=== PATIENT | female | born 1970 | race Caucasian/White ===

== ENCOUNTER → 2017-06-16 | Outpatient (CLI) | payer OTHER ==
--- NOTE | 2017-06-18 09:22 | MG ---
HISTORY: SCREENING Comparison: Multiple mammograms dating back to January 28, 2011. FINDINGS: Bilateral CC and MLO projections of the right and left breast were obtained. Implant displacement vie ws were also performed. Heterogeneously dense fibroglandular tissue is seen to be present. No signif icant architectural distortion, mass or clustered microcalcifications can be observed to suggest karen gnancy. Subpectoral saline implants that appear unchanged and intact. No skin thickening or nipple re traction is appreciated. No pathological lymphadenopathy can be identified. Benign-appearing calcif ications scattered throughout the right and left breasts are observed. IMPRESSION: NO RADIOGRAPHIC EVIDENCE OF MALIGNANCY. ACR CATEGORY: 2 - benign findings. FOLLOW-UP EXAM 1 YEAR. Diagnostic CAD was utilized and reviewed. * 0 (ZERO) - ASSESSMENT INCOMPLETE; ADDITIONAL IMAGING IS NEEDED. * 1/1 (ONE) - NEGATIVE. * 2/II (TWO) - BENIGN FINDINGS. * 3/III (THREE) - PROBABLY BENIGN FINDING; SHORT INTERVAL FOLLOW-UP SUGGESTED. * 4/IV (FOUR) - SUSPICIOUS ABNORMALITY; BIOPSY SHOULD BE CONSIDERED. * 5/V - HIGHLY SUSPICIOUS OF MALIGNANCY; BIOPSY SHOULD BE PERFORMED. A NEGATIVE X-RAY REPORT SHOULD NOT DELAY BIOPSY IF A DOMINANT OR CLINICALLY SUSPICIOUS MASS IS PRESENT; 4 TO 8 PERCENT OF CANCERS ARE NOT IDENTIFIED BY X-RAY. A NEGA TIVE REPORT MAY REINFORCE THE CLINICAL IMPRESSION. ADENOSIS AND DENSE BREASTS MAY OBSCURE AN UNDERLY ING NEOPLASM. Reported By:
== END ==
LOC: RAD 13:50
PROVIDERS: ATTEND Specialist
DX: Z12.31 Encounter for screening mammogram for malignant neoplasm of breast (principal)
CPT/HCPCS: 77067

== ENCOUNTER 2020-06-24 10:04 | Observation (INO) ==
[2020-06-24 10:14] VITALS: BMI 30.2
--- NOTE | 2020-06-24 10:52 | DR.CP ---
HPI Time Seen Time Seen by Provider: 06/24/20 10:31 PCP Primary Care Physician: Rei Complaint Chief Complaint Doctor Comments: chest pain x 2 days. left sided. fh for CAD. no personal hx of CAD. no SOB. no n/v/f/c. Chief Complaint:: Pt c/o intermittent chest pain since Wednesday. She c/o shortness of breath when pain occurs. Pain worsens with movement and deep breathing. Self Treatment fo Chief Complaint: none COVID-19 Coronavirus risk:travel/contact w/high risk person: No Has patient experienced Coronavirus symptoms: No Reviewed Nurses Notes Review: Yes Source History Provided: Patient Mode of Arrival Mode of Arrival: Ambulatory Timing Onset of Chief Complaint: 06/22/20 PMH PMH Past Medical History: Yes Past Medical History: Anxiety and GERD Past Medical History Comment: fatty liver, cerival cancer Past Surgical History: Yes Surgical History: , Cholecystectomy, [employer] G[employer] Surgery, Hysterectomy and Tonsillectomy Past Surgical History Comment: breast augmentation Family History History of Family Medical Conditions: Yes Family Medical History: Coronary Artery Disease Social History Does patient currently use any type of tobacco product: No Have you used tobacco products in the last 12 months: No Type of Tobacco Use: None Does any household member use tobacco: No Alcohol Use: None Do you use any recreational Drugs:: No Lives With: Spouse Lives Where: Home Travel Risk Coronavirus risk:travel/contact w/high risk person: No Has patient experienced Coronavirus symptoms: No Infectious screening In the last 2 months have you had wt loss of >10#?: NO Have you had fever, night sweats or hemotysis?: No Have you traveled outside the country in the last 6 months?: No Isolation: Standard ROS Review of Systems Constitutional: No Symptoms Reported Eyes: No Symptoms Reported ENTM: No Symptoms Reported Respiratoy: No Symptoms Reported Cardiovascular: See HPI and Chest Pain Gastrointestinal/Abdominal: No Symptoms Reported Genitourinary: No Symptoms Reported Neurological: No Symptoms Reported Musculoskeletal: No Symptoms Reported Integumentary: No Symptoms Reported All Other Systems: Reviewed and Negative PE Vitals Vitals: Temperature 97.0 F Pulse Rate [Left Radial] 81 Pulse Rate 76 Respiratory Rate 18 Blood Pressure [Left Arm] 164/88 Blood Pressure 132/90 O2 Sat by Pulse Oximetry 98 General General Appearance: Alert and Anxious Head Head Exam: Normal Inspection Eyes Eye exam: Normal Appearance ENT ENT Exam: Normal Exam Chest Chest Inspection: Normal Inspection Respiratory Respiratory Exam: Normal Lung Sounds Bilat Cardiovascular Cardiovascular Exam: Regular Rate, Normal Rhythm and Normal Heart Sounds Pulse: Normal Edema: Normal Abdominal Exam Abdominal Exam: Normal Inspection, Normal Bowel Sounds and Soft; negative Tenderness Extremities Extremities Exam: Normal Inspection and Full ROM Back Back Exam: Normal Inspection and Full ROM Neurologic Neurological Exam: Alert and Oriented X3 Skin Skin Exam: Warm, Dry and Intact COURSE Reevaluation 1st: Improved ROR Labs Reviewed Result Diagrams: 06/24/20 10:35 06/24/20 10:35 Laboratory: WBC 5.6 X10^3/uL (3.6-10.0) 06/24/20 10:35 RBC 5.02 X10^6/uL (3.5-5.4) 06/24/20 10:35 Hgb 15.5 g/dL (12.0-16.0) 06/24/20 10:35 Hct 45.4 % (36.0-47.0) 06/24/20 10:35 MCV 90.4 fL (80.0-100.0) 06/24/20 10:35 MCH 30.8 pg (27.0-34.0) 06/24/20 10:35 MCHC 34.1 g/dL (33.0-35.0) 06/24/20 10:35 RDW 13.5 % (11.6-16.5) 06/24/20 10:35 Plt Count 214 X10^3/uL (150.0-450.0) 06/24/20 10:35 MPV 8.5 fL (7.4-11.0) 06/24/20 10:35 Neut % (Auto) 57.0 % (42.0-75.0) 06/24/20 10:35 Lymph % (Auto) 28.8 % (21.0-51.0) 06/24/20 10:35 Mclennan % (Auto) 12.3 % (0.0-13.0) 06/24/20 10:35 Eos % (Auto) 1.3 % (0.9-2.9) 06/24/20 10:35 Baso % (Auto) 0.6 % (0.2-1.0) 06/24/20 10:35 Neut # (Auto) 3.2 x10^3/uL (2.2-4.8) 06/24/20 10:35 Lymph # (Auto) 1.6 X10^3/uL (1.3-2.9) 06/24/20 10:35 Mclennan # (Auto) 0.7 x10^3/uL (0.3-0.8) 06/24/20 10:35 Eos # (Auto) 0.1 x10^3/uL (0.0-0.2) 06/24/20 10:35 Baso # (Auto) 0.0 X10^3/uL (0.0-0.1) 06/24/20 10:35 Absolute Nucleated RBC 0.2 /100WBC 06/24/20 10:35 PT 12.8 SECONDS (11.8-14.3) 06/24/20 10:35 INR Target Range - 06/24/20 10:35 INR 0.99 (0.8-1.3) 06/24/20 10:35 APTT 31.0 SECONDS (22.9-36.5) 06/24/20 10:35 PTT Comment - 06/24/20 10:35 Sodium 140 mmol/L (136-145) 06/24/20 10:35 Corrected Sodium TNP 06/24/20 10:35 Potassium 3.4 mmol/L (3.5-5.1) L 06/24/20 10:35 Chloride 103 mmol/L (98-107) 06/24/20 10:35 Carbon Dioxide 28.9 mmol/L (21-32) 06/24/20 10:35 BUN 14 mg/dL (7-18) 06/24/20 10:35 Creatinine 1.01 mg/dL (0.55-1.02) 06/24/20 10:35 Est GFR (MDRD) Af Amer > 60 (>60) 06/24/20 10:35 Est GFR (MDRD) Non-Af > 60 (>60) 06/24/20 10:35 Glucose 96 mg/dL (65-99) 06/24/20 10:35 Calcium 9.4 mg/dL (8.5-10.1) 06/24/20 10:35 Corrected Calcium TNP 06/24/20 10:35 Total Bilirubin 0.40 mg/dL (0.2-1.0) 06/24/20 10:35 AST 33 Units/L (15-37) 06/24/20 10:35 ALT 94 Units/L (12-78) H 06/24/20 10:35 Alkaline Phosphatase 86 Units/L (46-116) 06/24/20 10:35 Creatine Kinase 78 Units/L (26-192) 06/24/20 10:35 CK-MB (CK-2) < 1.0 ng/mL (0-4.0) 06/24/20 10:35 Troponin I < 0.02 ng/mL (0-1.5) 06/24/20 10:35 Total Protein 7.8 g/dL (6.4-8.2) 06/24/20 10:35 Albumin 4.1 g/dL (3.4-5.0) 06/24/20 10:35 Globulin 3.7 g/dL (2.5-4.5) 06/24/20 10:35 Albumin/Globulin Ratio 1.1 Ratio (1.1-2.1) 06/24/20 10:35 SARS CoV-2 RNA Rapid SHYAM Negative (NEGATIVE) 06/24/20 12:06 Opioid Opioid Risk Tool Age (Fred box if 16-45): No History of Preadolescent Sexual Abuse: No Total: 0 Total Score Risk Category: Low Risk Copyright: Chapo MORALES predicting aberrant behaviors Diagnosis Discharge Problem: Chest pain Narrative Support Text: spoke w dr renee who agrees to obs for chest pain
[2020-06-24 10:58] LABS: BASOPHILS % (AUTO) 0.6 % (0.2-1.0); EOSINOPHILS # (AUTO) 0.1 x10^3/uL (0.0-0.2); EOSINOPHILS % (AUTO) 1.3 % (0.9-2.9); HEMATOCRIT 45.4 % (36.0-47.0); HEMOGLOBIN 15.5 g/dL (12.0-16.0); LYMPHOCYTES # (AUTO) 1.6 X10^3/uL (1.3-2.9); LYMPHOCYTES % (AUTO) 28.8 % (21.0-51.0); MEAN CORPUSCULAR HEMOGLOBIN 30.8 pg (27.0-34.0); MEAN CORPUSCULAR HGB CONC 34.1 g/dL (33.0-35.0); MEAN CORPUSCULAR VOLUME 90.4 fL (80.0-100.0); MEAN PLATELET VOLUME 8.5 fL (7.4-11.0); MONOCYTES # (AUTO) 0.7 x10^3/uL (0.3-0.8); MONOCYTES % (AUTO) 12.3 % (0.0-13.0); NEUTROPHILS # (AUTO) 3.2 x10^3/uL (2.2-4.8); PLATELET COUNT 214 X10^3/uL (150.0-450.0); RED BLOOD COUNT 5.02 X10^6/uL (3.5-5.4); RED CELL DISTRIBUTION WIDTH 13.5 % (11.6-16.5); WHITE BLOOD COUNT 5.6 X10^3/uL (3.6-10.0)
--- NOTE | 2020-06-24 11:05 | RAD ---
HISTORYCHEST PAINSTUDYCHEST, 1 VIEWCOMPARISONNoneFINDINGSHeart size and pulmonary vasculature normal. Lungs are clear with no infiltrate or significant effusion on either side. Bony thorax is unremarkable.IMPRESSIONNo acute cardiopulmonary abnormality is seen on this exam.Electronically signed by: EFRAÍN ANDUJAR (Jun 24, 2020 11:03:09)
[2020-06-24 11:23] LABS: ALANINE AMINOTRANSFERASE 94 Units/L (12-78); ALBUMIN 4.1 g/dL (3.4-5.0); ALKALINE PHOSPHATASE 86 Units/L (46-116); ASPARTATE AMINO TRANSFERASE 33 Units/L (15-37); BLOOD UREA NITROGEN 14 mg/dL (7-18); CALCIUM 9.4 mg/dL (8.5-10.1); CARBON DIOXIDE 28.9 mmol/L (21-32); CHLORIDE 103 mmol/L (98-107); CREATINE KINASE 78 Units/L (26-192); CREATINE KINASE MB < 1.0 ng/mL (0-4.0); CREATININE 1.01 mg/dL (0.55-1.02); SODIUM 140 mmol/L (136-145); TOTAL PROTEIN 7.8 g/dL (6.4-8.2); TROPONIN I < 0.02 ng/mL (0-1.5); eGFR NON BLACK RACES > 60 (>60)
[2020-06-24 14:07] LABS: CKMB % 1.4 % (<4); CREATINE KINASE 73 Units/L (26-192); CREATINE KINASE MB < 1.0 ng/mL (0-4.0); TROPONIN I < 0.02 ng/mL (0-1.5)
[2020-06-24] MEDS ORDERED: POTASSIUM CHLORIDE LIQ 20 MEQ UDC PO PRN (16:57)
[2020-06-24] MEDS ORDERED: POTASSIUM CHL 60 MEQ/NS 0.45% 500 ML IV PRN (16:57)
[2020-06-24] MEDS ORDERED: POTASSIUM CHL 40 MEQ/NS 0.45% 500 ML IV PRN (16:57)
[2020-06-24] MEDS ORDERED: KLOR-CON PO PRN (16:57)
[2020-06-24] MEDS ORDERED: K-RIDER 10 MEQ/NS 100 ML 10 MEQ/100 ML BAG IV PRN (16:57)
[2020-06-24] MEDS ORDERED: MAGNESIUM SULFATE 1 GRAM/100 mL PREMIX 1 GM/100 ML BAG IV PRN (16:57)
[2020-06-24] MEDS ORDERED: MICRO K EXTEN CAP 10 MEQ PO PRN (16:57)
[2020-06-24] MEDS: K-DUR TAB 20 MEQ PO PRN (19:12)
[2020-06-24] MEDS ORDERED: VALIUM PO PRN (21:00)
[2020-06-24] MEDS ORDERED: MAALOX or MYLANTA PO PRN (21:16)
[2020-06-24] MEDS ORDERED: MILK OF MAGNESIA PO PRN (21:17)
[2020-06-24 21:44] LABS: CKMB % 1.6 % (<4); CREATINE KINASE 63 Units/L (26-192); CREATINE KINASE MB < 1.0 ng/mL (0-4.0); TROPONIN I < 0.02 ng/mL (0-1.5)
[2020-06-25 02:22] LABS: CKMB % 1.8 % (<4); CREATINE KINASE 57 Units/L (26-192); CREATINE KINASE MB < 1.0 ng/mL (0-4.0); TROPONIN I < 0.02 ng/mL (0-1.5)
[2020-06-25 06:09] LABS: BASOPHILS % (AUTO) 0.5 % (0.2-1.0); EOSINOPHILS # (AUTO) 0.1 x10^3/uL (0.0-0.2); EOSINOPHILS % (AUTO) 1.9 % (0.9-2.9); HEMATOCRIT 42.3 % (36.0-47.0); HEMOGLOBIN 14.6 g/dL (12.0-16.0); LYMPHOCYTES # (AUTO) 2.4 X10^3/uL (1.3-2.9); LYMPHOCYTES % (AUTO) 39.1 % (21.0-51.0); MEAN CORPUSCULAR HGB CONC 34.5 g/dL (33.0-35.0); MEAN PLATELET VOLUME 8.9 fL (7.4-11.0); MONOCYTES # (AUTO) 0.8 x10^3/uL (0.3-0.8); MONOCYTES % (AUTO) 12.7 % (0.0-13.0); NEUTROPHILS # (AUTO) 2.8 x10^3/uL (2.2-4.8); NEUTROPHILS % (AUTO) 45.8 % (42.0-75.0); PLATELET COUNT 191 X10^3/uL (150.0-450.0); RED CELL DISTRIBUTION WIDTH 13.2 % (11.6-16.5); WHITE BLOOD COUNT 6.2 X10^3/uL (3.6-10.0)
[2020-06-25 06:10] LABS: ALANINE AMINOTRANSFERASE 88 Units/L (12-78); ALBUMIN 3.6 g/dL (3.4-5.0); ALKALINE PHOSPHATASE 70 Units/L (46-116); ASPARTATE AMINO TRANSFERASE 34 Units/L (15-37); BLOOD UREA NITROGEN 14 mg/dL (7-18); CALCIUM 8.9 mg/dL (8.5-10.1); CARBON DIOXIDE 28.7 mmol/L (21-32); CHLORIDE 104 mmol/L (98-107); CHOL/HDL RATIO 4.6 (0.0-5.0); CHOLESTEROL 208 mg/dL (0-200); CREATININE 0.93 mg/dL (0.55-1.02); HDL CHOLESTEROL 45 mg/dL (40-60); MAGNESIUM 2.2 mg/dL (1.7-2.9); SODIUM 141 mmol/L (136-145); TOTAL PROTEIN 6.9 g/dL (6.4-8.2); TRIGLYCERIDES 120 mg/dL (0-150); eGFR NON BLACK RACES > 60 (>60)
[2020-06-25 08:48] LABS: BILIRUBIN,URINE NEGATIVE (NEGATIVE); BLOOD/HEMOGLOBIN,URINE NEGATIVE (NEGATIVE); GLUCOSE, URINE NEGATIVE (NEGATIVE); KETONES,URINE NEGATIVE (NEGATIVE); LEUKOCYTE ESTERASE ,URINE NEGATIVE (NEGATIVE); NITRITES,URINE NEGATIVE (NEGATIVE); PROTEIN,URINE NEGATIVE (NEGATIVE); UROBILINOGEN,URINE NORMAL (NORMAL)
[2020-06-25] MEDS: K-DUR TAB 20 MEQ PO PRN (08:49)
[2020-06-25 08:50] LABS: APPEARANCE,URINE CLEAR (CLEAR); COLOR,URINE YELLOW (YELLOW)
[2020-06-25] MEDS ORDERED: ASPIRIN PO SCH (09:00)
--- NOTE | 2020-06-25 10:45 | DR.CARTERS ---
Short Stay Summary - Admission Date Date of Admission: 06/24/20 - Discharge Date Discharge Date: 06/25/20 - Admission Diagnoses (1) Chest pain, rule out acute myocardial infarction Status: Acute - Hospital Course Hospital Course: IS A 50 YEAR OLD PATIENT OF OURS WHO PRESENTED TO THE ER WITH COMPLAINTS OF LEFT SIDED CHEST PAIN THAT STARTED TWO DAYS PRIOR TO ARRIVAL. SHE REPORTED THAT PAIN IS INTERMITTENT. WHEN EPISODES OCCURED, PATIENT HAD SHORTNESS OF BREATH. PAIN WAS WORSE WITH MOVEMENT AND DEEP BREATHING. PAIN IS DESCRIBED PRESSURE AND HEAVINESS. PAIN DID NOT RADIATE. SHE RATED PAIN A 4/10 ON ARRIVAL. SHE DENIED NAUSEA, VOMITING, FEVER, OR CHILLS. SHE HAS A FAMILY HISTORY OF CAD, BUT NO PERSONAL HISTORY OF CAD. HER PMH INCLUDES ANXIETY, GERD, FATTY LIVER, CE RVICAL CANCER, CHOLECYSTECTOMY, HYSTERECTOMY, TONSILLECTOMY, AND BREAST AUGMENTATION. ON ARRIVAL TO THE ER, VITALS WERE 97.0-92-18-99%-148/84. LABS WERE OBTAINED. POTASSIUM 3.4, ALT 94, OTHERWISE, PATIENT IS HEMODYNAMICALLY STABLE. CARDIAC ENZYMES WERE WITHIN NORMAL LIMITS. COVID-19 NEGATIVE. EKG WAS OBTAINED AND REVEALED: SINUS RHYTHM WITH HR 78. A CHEST XRAY WAS OBTAINED AND REVEALED: Heart size and pulmonary vasculature normal. Lungs are clear with no infiltrate or significant effusion on either side. Bony thorax is unremarkable. A SECOND CARDIAC ENZYME WAS OBTAINED AT 12:27 AND WAS ALSO WITHIN NORMAL LIMITS. A SECOND EKG REVEALED SINUS RHYTHM WITH HR 72. SHE WAS ADMITTED TO THE HOSPITAL FOR FURTHER EVALUATION AND TREATMENT OF CHEST PAIN RULE OUT ACUTE OH. SHE WAS STARTED ON ASPIRIN 325MG PO DAILY, VALIUM 5MG PO Q8H PRN, MAALOX 30ML PO Q4H PRN, MILK OF MAGNESIA 30ML PO Q12H PRN, AND THE POTASSIUM AND MAGNESIUM PROTOCOLS. OTHERWISE, WE PLANNED TO FOLLOW UP WITH AM LABS AND CONTINUE TO MONITOR. ON THE MORNING FOLLOWING ADMISSION, PATIENT IS ALERT AND ORIENTED, SITTING UP IN BED ON MORNING ROUNDS. SHE CONTINUES WITH COMPLAINTS OF INTERMITTENT PAIN, BUT DENIES WORSENING OF SYMPTOMS SINCE ADMISSION. ON EXAMINATION, HEART IS REGULAR IN RATE AND RHYTHM. BILATERAL LUNGS ARE NOTED WITH DIMINISHED LUNG SOUNDS THROUGHOUT. ABDOMEN IS ROUND, SOFT, AND NON-TENDER WITH NORMAL BOWEL SOUNDS NOTED IN ALL QUADRANTS. HER VITALS THIS MORNING ARE: 97.2-65-20-98%-131/64. LABS WERE OBTAINED. ALT 88, CHOLESTEROL 208, LDL 139, OTHERWISE, SHE REMAINS HEMODYNAMICALLY STABLE. CARDIAC ENZYMES ARE WITHIN NORMAL LIMITS. MOST RECENT EKG REVEALED SINUS RHYTHM WITH HR 72. WE OBTAINED AN ECHOCARDIOGRAM WHICH REVEALED an ejection fraction of 72%. WE ALSO OBTAINED AN AORTIC ULTRASOUND WHICH REVEALED: 1. No abdominal aortic aneurysm. WE PLANNED FOR DISCHARGE. INSTRUCTIONS FOR MEDICATIONS AND FOLLOW UP WERE DISCUSSED WITH PATIENT AND FAMILY. THEY VERBALIZED UNDERSTANDING OF ALL ORDERS. SHE WAS GIVEN NEW PRESCRIPTIONS FOR ROSUVASTATIN 10MG PO DAILY AND ECOTRIN 325MG PO DAILY. WE WILL SET HER UP FOR AN OUTPATIENT NUCLEAR STRESS TEST. SHE IS INSTURUCTED TO FOLLOW UP IN THE OFFICE IN FOUR WEEKS. PATIENT DISCHARGED HOME WITH FAMILY IN STABLE CONDITION. TIME SPENT ON CLNICAL ASSESSMENT, REVIEWING LABS AND IMAGING, DECISION MAKING, AND DOCUMENTATION GREATER THAN 75 MINUTES. - Discharge Medications Discharge Medications: Home Medication List alprazolam 1 mg PO HS 06/24/20 [History] estradiol 1 patch TOPICAL DIRECTED 06/24/20 [History] famotidine-Ca carb-mag hydrox [Pepcid Complete] 1 tab PO DAILY 06/24/20 [History] hydrochlorothiazide 25 mg PO DAILY PRN 06/24/20 [History] pantoprazole [Protonix] 40 mg PO DAILY 06/24/20 [History] aspirin [Ecotrin] 325 mg PO DAILY #30 tab 06/25/20 [Rx] rosuvastatin 10 mg PO DAILY #30 tab 06/25/20 [Rx] Prescriptions: aspirin [Ecotrin] Bolivar Minaya rosuvastatin Bolivar Minaya - Discharge Plan Disposition: 01 HOME, SELF-CARE Condition: Stable Prescriptions: aspirin [Ecotrin] 325 mg PO DAILY #30 tab rosuvastatin 10 mg PO DAILY #30 tab - Follow up/Referrals Follow up/Referrals: Bolivar Minaya [Primary Care Provider] - 07/23/20 - Instructions Instructions: Nonspecific Chest Pain, [id number] Additional Instructions: DIET TOLERATED. ACTIVITY TOLERATED. SCHEDULE OUTPATIENT NUCLEAR STRESS TEST Forms: Excuse From Work or School, Precautions for COVID19, Patient Portal, Social Distancing
[2020-06-25 12:16] VITALS: BP 121/85
--- NOTE | 2020-06-25 14:48 | US ---
HISTORYCHEST PAIN, EPIG PAIN evaluate for aneurysmSTUDYAORTACOMPARISONNoneTECHNIQUETwenty-one images made by the pricing/signage team member. Valdez scale and co zuly-flow doppler images of the aorta were obtained.FINDINGSProximal aorta measured 20 mm. Middle aort a measures 15 mm. Distal aorta measured 16 mm. No evidence for abdominal aortic aneurysm.Right common iliac artery measured 10 mm. Left common iliac artery was not identified due to overlying bowel gas. IMPRESSION1. No abdominal aortic aneurysmElectronically signed by: Elton Rojo (Jun 25, 2020 14 :46:06)
== END 2020-06-25 15:15 | disposition home or self-care (01) ==
LOC: MED/SURG 10:05 → ER 10:05 → MED/SURG 14:18
PROVIDERS: ADMIT Internal Medicine; ATTEND Internal Medicine
DX: R07.89 Other chest pain; R10.31 Right lower quadrant pain; F41.8 Other specified anxiety disorders; R06.02 Shortness of breath; K21.9 Gastro-esophageal reflux disease without esophagitis; Z20.822 Contact with and (suspected) exposure to COVID-19